=== PATIENT | female | born 1955 | race American Indian/Alaskan Native ===

== ENCOUNTER 2017-01-27 02:18 | Emergency (ER) | payer MEDICARE ==
[~2017-01-27 02:18] MED LIST: ADRENALIN ONE; D50W (25GM) Syringe IV ONE
--- NOTE | 2017-01-27 03:19 | Emergency Department Report ---
HPI - General Chief Complaint: Cardiac Arrest/CPR Time Seen by Provider: 01/27/17 03:15 - HPI HPI: ED CPR HPI - General Stated Complaint: KENNA Time Seen by Provider: 01/27/17 03:00 Source: EMS Mode of arrival: Stretcher Limitations: Altered Mental Status - History of Present Illness Initial Comments: 61-year-old female witnessed arrest brought in by EMS after a prolonged downtime. Patient was witnessed to collapse at approximately 1:30 AM. EMS was called shortly after that time. A non-screwdriver around 1:40 PM. They continued CPR and multiple rounds of medications until arrival here. The patient arrived intubated. According to EMS she was in asystole on arrival. They did achieve PDA followed by [facility] fib and then the patient was defibrillated just prior to arrival. EMS states that they did have a pulse at some point. On arrival here the patient was pulseless. MD Complaint: found unresponsive -: minute(s) Place: home Bystander CPR Performed: No AED Applied by Bystander/Infantry Assaultman: No Shock Advised: No Initial Findings in the Field: unresponsive ROSC in the Field: Yes (per EMS report) Treatments Prior to Arrival: intubation, defribrillated shocks # (1), epinephrine mgs # (3), atropine mgs # (1), sodium bicarbonate (1), glucose (1) - Related Da ED Review of Systems ROS: Stated complaint: KENNA Other details as noted in HPI Comment: Unobtainable due to pts medical conditions ED Past Medical Hx - Past Medical History Hx Hypertension: Yes Hx Heart Attack/AMI: Yes Hx Congestive Heart Failure: Yes Hx Diabetes: Yes Hx Deep Vein Thrombosis: No Hx GERD: Yes Hx Renal Disease: Yes (ARF) Hx Arthritis: Yes Hx Asthma: Yes Hx COPD: Yes Additional medical history: chronic pain,CAD,PUD,cardiac stents - Surgical History Hx Coronary Stent: Yes Hx Pacemaker: Yes (Left AICD) Hx Internal Defibrillator: Yes (pt states, poor historian) Hx Cholecystectomy: Yes Additional Surgical History: hysterectomy,left knee replacement,carpal tunnel - Social History Smoking Status: Unknown if ever smoked - Medications Home Medications: ED Physical Exam - General Limitations: Altered Mental Status, Physical Limitation General appearance: obtunded - Head Head exam: Present: other (pupils fixed and dilated) - ENT ENT exam: Present: mucous membranes dry - Respiratory Respiratory exam: Present: normal lung sounds bilaterally, other (patient intubated) - Cardiovascular Cardiovascular Exam: Present: other (no spontaneous cardiac activity) - GI/Abdominal GI/Abdominal exam: Present: distended ED Medical Decision Making - Medical Decision Making Patient brought in by ambulance in full cardiac arrest. Patient had multiple rounds of medications prior to arrival. She was down for prolonged amount of time. Her pupils were fixed and dilated. The patient was given 2 additional doses of epinephrine and D50. There was no spontaneous return of circulation. Patient had PEA on the monitor. Given the prolonged downtime and the patient's likely grim prognosis/neurological status the code was terminated. Time of 2:26 AM. Critical care attestation.: If time is entered above; I have spent that time in minutes in the direct care of this critically ill patient, excluding procedure time. ED Disposition Clinical Impression: Cardiac arrest Disposition: DC-20 Is pt being admited?: No ED Past Medical Hx - Past Medical History Hx Hypertension: Yes Hx CVA: Yes (short term memory loss diminshed peripheral vision in left eye, date unknow) Hx Heart Attack/AMI: Yes Hx Congestive Heart Failure: Yes Hx Diabetes: No Hx Renal Disease: Yes (ESRD on hemodialysis , and Tue) Hx Asthma: Yes Hx COPD: No Additional medical history: afib/flutter - Surgical History Hx Coronary Stent: Yes Hx Cholecystectomy: Yes (1981) Hx Appendectomy: No Additional Surgical History: myomectomy 1987 - Social History Smoking Status: Never Smoker - Medications Home Medications: Home Medications Medication Instructions Recorded Confirmed Last Taken Type Bumetanide [Bumetanide 2 mg tab] 4 mg PO BID 06/11/15 08/07/16 08/07/16 History Carvedilol [Coreg] 25 mg PO BID 06/11/15 08/07/16 08/07/16 History Cinacalcet HCl [Sensipar] 90 mg PO DAILY 06/11/15 08/07/16 08/07/16 History Lansoprazole [Prevacid] 15 mg PO QDAY 06/11/15 08/07/16 08/07/16 History Lisinopril [Zestril TAB] 20 mg PO QDAY 06/11/15 08/07/16 08/07/16 History Metolazone 10 mg PO QDAY 01/08/07/16 08/07/16 History Propylthiouracil 100 mg PO BID 06/11/15 08/07/16 08/07/16 History Sevelamer Carbonate [Renvela] 800 mg PO TIDWM 06/11/15 08/07/16 08/07/16 History amLODIPine [Norvasc] 10 mg PO DAILY 06/11/15 08/07/16 08/07/16 History ALBUTEROL Inhaler [ProAir HFA 1 puff IH Q4HR 08/01/15 08/07/16 08/07/16 History Inhaler] Apixaban [Eliquis] 5 mg PO BID 08/01/15 08/07/16 08/07/16 History Aspirin [Aspirin BABY CHEW TAB] 81 mg PO QDAY 08/01/15 08/07/16 08/07/16 History Atorvastatin [Lipitor] 80 mg PO QHS 08/01/15 03/18/16 08/07/16 History Bisacodyl [Dulcolax suppos] [address] QDAY 08/01/15 08/07/16 08/07/16 History Clopidogrel [Plavix] 75 mg PO QDAY 08/01/15 08/07/16 08/07/16 History Metoclopramide HCl [Reglan TAB] 5 mg PO TIDAC 08/01/15 08/07/16 08/07/16 History Niacinamide [Niacin] 500 mg PO QDAY PRN 08/01/15 08/07/16 08/07/16 History Nitroglycerin [Nitro Dur] 0.3 mg TD Q5MIN PRN 08/01/15 08/07/16 08/07/16 History Pantoprazole [Protonix TAB] 40 mg PO QDAY 08/01/15 08/07/16 08/07/16 History Sennosides [Senna Lax] 8.6 mg PO QDAY PRN 08/01/15 03/18/16 03/16/16 History oxyCODONE /ACETAMINOPHEN [Percocet 1 mg PO Q6H PRN 08/01/15 08/07/16 08/07/16 History 5/325 mg] ED Review of Systems ROS: Stated complaint: CARDIAC ARREST Other details as noted in HPI Critical care attestation.: If time is entered above; I have spent that time in minutes in the direct care of this critically ill patient, excluding procedure time. ED Disposition Clinical Impression: Cardiac arrest Disposition: DC-20 Is pt being admited?: No Condition: Stable Referrals: PRIMARY CARE, [Primary Care Provider] - 3-5 Days
== END 2017-01-27 06:34 ==
LOC: ED 02:18
DX: I46.9 Cardiac arrest, cause unspecified (principal); I10 Essential (primary) hypertension; I50.9 Heart failure, unspecified; I25.2 Old myocardial infarction; E11.9 Type 2 diabetes mellitus without complications; J45.909 Unspecified asthma, uncomplicated; J44.9 Chronic obstructive pulmonary disease, unspecified; I25.10 Atherosclerotic heart disease of native coronary artery without angina pectoris
CPT/HCPCS: 82962; 99285; J0171